=== PATIENT | female | born 1980 | race Caucasian/White ===

== ENCOUNTER 2018-12-02 10:22 | Day surgery (SDC) | payer OTHER ==
[~2018-12-02] VITALS: Ht 162.6 cm; Wt 65.4 kg
[2018-12-02] VITALS (18 sets, daily range): BP systolic 86–113; BP diastolic 46–64; PULSE 58–84; RESP 14–18; Ht 162.6 cm; Wt 65.4 kg
[~2018-12-02 10:22] MED LIST: ACETAMINOPHEN 500 MG TAB PO ONE; CEFAZOLIN SODIUM 2GM/D5W 50 X1 IVPB ONE; RANI150T35 PO; SOD CHLORIDE 0.9% 1,000 ML IV SCH
[2018-12-02] MEDS ORDERED: ISOSULFAN BLUE 1% 5 ML INJ SC ONE ×2 (12:05→13:09)
[2018-12-02] MEDS ORDERED: MIDAZOLAM 1 MG/ML 2 ML INJ ONE (12:48)
--- NOTE | 2018-12-02 12:52 | PREAC ---
Date/Time of Note Date/Time of Note DATE: 12/02/18 TIME: 12:50 Anesthesia Eval and Record Evaluation Time Pre-Procedure Interview DATE: 12/02/18 TIME: 12:50 Age 38 Sex female NPO: 8 hrs Preoperative diagnosis Right Breast Mass Planned procedure Right Needle Localized partial Mastectomy Past Medical History Past Medical History: Includes Cardio: Arrythmia (Palpitation) Psych: Anxiety Surgery & Anesthesia Issues No known issue Meds Anticoagulation: No Beta Faisal within 24 hr: No Reason Beta Faisal not given: Pt. not on B-Faisal Reported Medications Ranitidine Hcl* (Zantac*) 150 Mg Tablet, 150 MG PO HS, #30 TAB 12/02/18 Current Medications Sodium Chloride 1,000 ml @ 75 mls/hr [id number] IV Last administered on 12/02/18at 12:06; Admin Dose 75 MLS/HR; Start 12/02/18 at 09:00; Stop 12/02/18 at 22:19 Meds reviewed: Yes Allergies Coded Allergies: No Known Allergy (Unverified , 12/02/18) Allergies Reviewed: Yes Labs/Studies Labs Reviewed: Reviewed by anesthesiologist test: Negative Studies: ECG (n/a), CXR (n/a) Pre-procedure Exam Last vitals Vital Signs Date Temp Pulse Resp B/P (MAP) Pulse Ox O2 O2 Flow FiO2 Time Delivery Rate 12/02/18 98.9 78 16 113/64 100 12:27 (80) Airway: Adequate mouth opening, Adequate thyromental dist Mallampati: Mallampati II Teeth: Normal Lung: Normal Heart: Normal ASA Physical Status ASA physical status: 2 Emergency: None Planned Anesthetic General/MAC: LMA Planned Pain Management Parenteral pain med Pre-operative Attestations Prior to commencing anesthesia and surgery, the patient was re-evaluated, there was verification of: *The patient's identity *The results of appropriate recent lab work and preoperative vital signs *The above evaluation not changing prior to induction *Anesthetic plan, risk benefits, alternative and complications discussed with p atient/family; questions answered; patient/family understands, accepts and wishes to proceed. KEVIN MORENO MD Dec 02, 2018 12:52
[2018-12-02] MEDS ORDERED: OXYCODONE/ACETAMINOPHEN (5/325) TAB PO PRN (13:00)
[2018-12-02] MEDS ORDERED: EPHEDrine 25 MG/5 ML SYG IV PRN (13:00)
[2018-12-02] MEDS ORDERED: ONDANSETRON 4 MG INJ IV PRN (13:00)
[2018-12-02] MEDS ORDERED: FENTAnyl 50 MCG/ML VIAL IV PRN ×3 (13:00)
[2018-12-02] MEDS ORDERED: HYDROmorphONE 1 MG/5 ML IV SYRINGE IV PRN ×3 (13:00)
[2018-12-02] MEDS ORDERED: LABETALOL HCL 20MG INJ IV PRN (13:00)
[2018-12-02] MEDS ORDERED: METOCLOPRAMIDE 10 MG INJ IV PRN (13:00)
[2018-12-02] MEDS ORDERED: FENTAnyl 50 MCG/ML VIAL ONE (13:22)
[2018-12-02] MEDS ORDERED: CEFAZOLIN 1 GM INJ ONE (13:22)
[2018-12-02] MEDS ORDERED: PROPOFOL 20 ML ONE (13:22)
[2018-12-02] MEDS ORDERED: ONDANSETRON 4 MG INJ ONE (13:52)
[2018-12-02] MEDS ORDERED: DEXAMETHASONE 4 MG/ML 5 ML INJ ONE (13:52)
[2018-12-02] MEDS ORDERED: METOCLOPRAMIDE 10 MG INJ ONE (13:52)
[2018-12-02] MEDS ORDERED: KETOROLAC 30 MG INJ ONE (13:52)
[2018-12-02] MEDS ORDERED: PHENYLephrine (100 MCG/ML) 10ML SYG ONE (13:53)
[2018-12-02] MEDS ORDERED: EPHEDrine 25 MG/5 ML SYG ONE (13:53)
--- NOTE | 2018-12-02 14:08 | SIPON ---
Date/Time of Note Date/Time of Note DATE: 12/02/18 TIME: 14:06 Operative Report Preoperative Diagnosis Ductal carcinoma in situ right breast rule out invasion Postoperative Diagnosis Same Operation/Procedure Performed Right needle directed partial mastectomy Surgeon see signature line him assistant Dr Olson Anesthesia: general Estimated blood loss: 10 - 50 ml's Transfusion Required none Specimen Right partial mastectomy specimen Grafts/Implants none Complications none TARA LARA MD Dec 02, 2018 14:08
[2018-12-02] MEDS ORDERED: HYDROCODONE/APAP (7.5/325) TAB PO PRN (14:30)
[2018-12-02] MEDS ORDERED: MEPERIDINE 25 MG INJ ONE (14:32)
--- NOTE | 2018-12-02 14:33 | PAC ---
Date/Time of Note Date/Time of Note DATE: 12/02/18 TIME: 14:33 Post-Anesthesia Notes Post-Anesthesia Note Last documented vital signs Vital Signs Date Temp Pulse Resp B/P (MAP) Pulse Ox O2 O2 Flow FiO2 Time Delivery Rate 12/02/18 98.9 78 16 113/64 100 face mask 8 L 14:27 (80) Activity: WNL Respiratory function: WNL Cardiovascular function: WNL Mental status: Baseline Pain reasonably controlled: Yes Hydration appropriate: Yes Nausea/Vomiting absent: Yes KEVIN MORENO MD Dec 02, 2018 14:33
[2018-12-02] MEDS ORDERED: MEPERIDINE 25 MG INJ IV PRN (15:00)
--- NOTE | 2018-12-02 16:12 | OPR ---
DATE OF OPERATION: 12/02/2018 PREOPERATIVE DIAGNOSIS: Ductal carcinoma in situ, right breast. Rule out invasive cancer. POSTOPERATIVE DIAGNOSIS: Ductal carcinoma in situ, right breast. Rule out invasive cancer. PROCEDURE: Right needle-directed partial mastectomy. ANESTHESIA: General. ANESTHESIOLOGIST: Sarwat Blood MD SURGEON: Balbir Knott MD SUPERVISOR [employer] REMOVAL: Trey Olson MD INDICATIONS FOR PROCEDURE: The patient is a 38-year-old female who underwent screening mammography. She was found to have suspicious microcalcifications in her right breast, spanning approximately 2 c m. A core biopsy confirmed DCIS and excisional biopsy was recommended. The patient consented and wa s scheduled for surgery. DESCRIPTION OF PROCEDURE: On the morning of surgery, the patient presented to [facility] where she underwent localization of the lesion performed by attending radiolog ist, Dr. Fredo Xiao. Subsequently, she was brought to the operating theater, placed under gener al anesthesia. The right breast was prepped and draped in usual sterile fashion. A periareolar inci helen was made from the 12 o'clock location through the 9 o'clock location to the 6 o'clock location. Subcutaneous tissue was then dissected with cautery. The skin edges were elevated with skin hooks a nd wide circumferential dissection of the tissue associated with the wire took place down to the pect oralis major fascia. Specimen was then dissected off the fascia. It was transected, oriented and se nt for radiographic confirmation of capture. Capture was confirmed. The specimen was then sent for permanent pathologic analysis. The wound was irrigated. Residual bleeding was controlled with caute ry. Skin was then reapproximated with a deep dermal layer of 4-0 Vicryl sutures in interrupted fashi on, followed by final skin approximation with 5-0 PDS sutures in subcuticular fashion and Dermabond w as applied. The patient tolerated procedure well. Estimated blood loss was 20 mL. There were no co mplications and the patient was transported in stable condition to the recovery room where circumfere ntial compression dressing was applied. Dictated By: BALBIR KNOTT MD TL/NTS Conf#: [id number] DID#: [id number]
== END 2018-12-02 16:48 | disposition home or self-care (01) ==
LOC: SDS 10:22
PROVIDERS: ATTEND Surgery Surgical Oncology
DX: D05.11 Intraductal carcinoma in situ of right breast (principal); F41.9 Anxiety disorder, unspecified
CPT/HCPCS: 88307; J0690; J1100; J1885; J2175; J2250; J2370; J2405; J2765; J3010; Q9968